=== PATIENT | female | born 1965 | race Caucasian/White ===

== ENCOUNTER 2017-03-26 07:56 | Day surgery (SDC) | payer OTHER ==
[~2017-03-26 07:56] MED LIST: LIDOCAINE HCL 1% MPF SOL ONE; PROPOFOL 500 MG/50 ML EMU IV ONE
[2017-03-26 10:37] VITALS: TEMP 98.1
[2017-03-26 10:55] VITALS: RESP 18
[2017-03-26 11:04] VITALS: BP 120/71; PULSE 59; O2SAT 98
== END 2017-03-26 11:44 | disposition home or self-care (01) | DRG 951 ==
LOC: SURG 07:56
PROVIDERS: ATTEND Internal Medicine Gastroenterology
DX: Z12.11 Encounter for screening for malignant neoplasm of colon (principal); K64.8 Other hemorrhoids
CPT/HCPCS: J2001; J2704

== ENCOUNTER 2018-10-06 10:26 | Emergency (ER) | payer OTHER ==
[2018-10-06 11:11] VITALS: TEMP 99
[2018-10-06 11:46] VITALS: RESP 16
[2018-10-06 13:32] VITALS: BP 112/73; PULSE 61; O2SAT 97
== END 2018-10-06 13:31 | disposition home or self-care (01) | DRG 552 ==
LOC: ED 10:26
DX: M54.9 Dorsalgia, unspecified (principal); R20.8 Other disturbances of skin sensation
CPT/HCPCS: 72128; 72131; 99283; 99284